=== PATIENT | male | born 1950 | race Caucasian/White ===

== ENCOUNTER 2023-12-13 07:03 | Emergency (ER) | payer MEDICARE ==
[~2023-12-13] VITALS: Ht 175.3 cm; Wt 89.4 kg
[2023-12-13 07:36] VITALS: BP 150/87
[2023-12-13] MEDS ORDERED: HYDR1TAB94 PO (08:21)
[2023-12-13] MEDS ORDERED: Bactrim Ds Tab1 EACH PO (08:21)
== END 2023-12-13 08:27 | disposition home or self-care (01) ==
LOC: ER 07:03
DX: L02.212 Cutaneous abscess of back [any part, except buttock and flank] (principal); S20.411A Abrasion of right back wall of thorax, initial encounter; W20.8XXA Other cause of strike by thrown, projected or falling object, initial encounter; Y93.89 Activity, other specified
CPT/HCPCS: 99282

== ENCOUNTER 2024-05-04 05:38 | Emergency (ER) | payer OTHER ==
[~2024-05-04] VITALS: Ht 175.3 cm; Wt 88.5 kg
[~2024-05-04 05:38] MED LIST: Bactrim Ds Tab1 EACH PO; HYDR1TAB94 PO
[2024-05-04] MEDS ORDERED: Dexamethasone Sod Phos 10 MG/ML 1ML VIAL IM ONE (07:30)
[2024-05-04 08:11] VITALS: BP 140/83
[2024-05-04] MEDS ORDERED: Adenosine 3 MG/ML 2 ML Vial ONE (13:58)
== END 2024-05-04 08:00 ==
LOC: ER 05:38
DX: L30.8 Other specified dermatitis (principal); T50.995A Adverse effect of other drugs, medicaments and biological substances, initial encounter; I10 Essential (primary) hypertension; J45.909 Unspecified asthma, uncomplicated; E03.9 Hypothyroidism, unspecified; N40.0 Benign prostatic hyperplasia without lower urinary tract symptoms; Z79.899 Other long term (current) drug therapy; Z91.09 Other allergy status, other than to drugs and biological substances
CPT/HCPCS: 96372; 99283-25; J0153; J1100

== ENCOUNTER 2024-11-17 02:11 | Emergency (ER) | payer OTHER ==
[~2024-11-17] VITALS: Ht 172.7 cm; Wt 90.7 kg
[2024-11-17] MEDS ORDERED: Dexamethasone Sod Phos 10 MG/ML 1ML VIAL PO ONE (04:25)
[2024-11-17] MEDS ORDERED: Ibuprofen 600 MG Tab PO ONE (04:30)
[2024-11-17] MEDS ORDERED: Lidocaine 2% Viscous Soln 15 ML UDC PO ONE (04:30)
[2024-11-17 05:31] VITALS: BP 115/68
== END 2024-11-17 05:53 | disposition home or self-care (01) ==
LOC: ER 02:11
DX: J02.9 Acute pharyngitis, unspecified (principal); I10 Essential (primary) hypertension; J45.909 Unspecified asthma, uncomplicated; E03.9 Hypothyroidism, unspecified; Z88.8 Allergy status to other drugs, medicaments and biological substances
CPT/HCPCS: 99283; A9270; J1100

== ENCOUNTER 2024-12-15 08:34 | Emergency (ER) | payer OTHER ==
[~2024-12-15] VITALS: Ht 172.7 cm; Wt 88.9 kg
[2024-12-15 09:05] VITALS: BP 142/74
[2024-12-15] MEDS ORDERED: Dexamethasone Sod Phos 10 MG/ML 1ML VIAL PO ONE (10:20)
[2024-12-15] MEDS ORDERED: OSEL75CA PO (10:21)
[2024-12-15] MEDS ORDERED: ALBU90OI INH (10:21)
== END 2024-12-15 10:28 | disposition home or self-care (01) ==
LOC: ER 08:34
DX: J21.9 Acute bronchiolitis, unspecified (principal); J06.9 Acute upper respiratory infection, unspecified; J45.909 Unspecified asthma, uncomplicated; I10 Essential (primary) hypertension; E03.9 Hypothyroidism, unspecified; Z79.2 Long term (current) use of antibiotics; Z88.8 Allergy status to other drugs, medicaments and biological substances
CPT/HCPCS: 71046; 99283-25; J1100

== ENCOUNTER 2025-02-12 16:21 | Inpatient (IN) | payer OTHER ==
[~2025-02-12] VITALS: Ht 172.7 cm; Wt 97.7 kg
[~2025-02-12 16:21] MED LIST changes: +ALBU90OI INH; +OSEL75CA PO
[2025-02-12 17:43] LABS: Hematocrit 23.1 % (37.0-53.0); Hemoglobin 6.4 g/dL (13.5-17.5); Mean Corpuscular HGB 19.9 pg (26.0-34.0); Mean Corpuscular HGB Conc 27.7 g/dL (31.5-36.5); Mean Corpuscular Volume 72 fL (80-100); Mean Platelet Volume 9.5 fL (9.1-12.4); Platelet Count 372 K/mm3 (150-400); RDW Coefficient Variation 17.5 % (11.7-14.2); RDW Standard Deviation 45.3 fL (35.1-46.3); Red Blood Cell Count 3.22 M/mm3 (4.30-5.90)
[2025-02-12 18:17] LABS: BASOPHILS ABSOLUTE MAN 0.06 K/mm3 (0.00-0.23); BASOPHILS PERCENT MAN 1 % (0-2); EOSINOPHILS PERCENT MAN 0 % (0-6); LYMPHOCYTES ABSOLUTE MAN 1.13 K/mm3 (0.84-5.20); LYMPHOCYTES PERCENT MAN 18 % (21-46); MONOCYTES ABSOLUTE MAN 0.69 K/mm3 (0.16-1.47); MONOCYTES PERCENT MAN 11 % (4-13); NEUTROPHILS ABSOLUTE MAN 4.41 K/mm3 (1.96-9.15); SEG NEUTROPHILS PERCENT MAN 70 % (41-73); TOTAL CELLS COUNTED 100
[2025-02-12 18:21] LABS: Albumin, Blood 4.2 g/dL (3.4-5.0); Albumin/Globulin Ratio 1.3 (0.8-1.8); Bilirubin, Total 0.6 mg/dL (0.1-1.0); Bun/Creatinine Ratio 17.5 (12.0-20.0); Calcium, Blood 9.7 mg/dL (8.5-10.1); Creatinine, Blood 1.26 mg/dL (0.60-1.20); Globulin, Blood 3.3 g/dL (2.2-4.0); Potassium, Blood 4.4 mmol/L (3.5-5.5); Total Protein, Blood 7.5 g/dL (6.4-8.2)
[2025-02-12 22:50] LABS: BASOPHILS ABSOLUTE AUTO 0.05 K/mm3 (0.00-0.23); BASOPHILS PERCENT AUTO 1 % (0-2); EOSINOPHILS ABSOLUTE AUTO 0.19 K/mm3 (0.00-0.68); EOSINOPHILS PERCENT AUTO 3 % (0-6); Mean Corpuscular HGB 19.2 pg (26.0-34.0); Mean Corpuscular HGB Conc 27.3 g/dL (31.5-36.5); Mean Corpuscular Volume 71 fL (80-100); Mean Platelet Volume 9.4 fL (9.1-12.4); Platelet Count 349 K/mm3 (150-400); RDW Coefficient Variation 17.6 % (11.7-14.2); Red Blood Cell Count 3.12 M/mm3 (4.30-5.90); White Blood Cell Count 5.93 K/mm3 (4.00-11.30)
[2025-02-12] MEDS ORDERED: NS 1,000 ML IV SCH (22:50)
[2025-02-12 22:51] LABS: IMMATURE GRAN ABSOLUTE AUTO 0.02 K/mm3 (0.00-0.10); IMMATURE GRAN PERCENT AUTO 0 % (0-1); LYMPHOCYTES ABSOLUTE AUTO 1.84 K/mm3 (0.84-5.20); LYMPHOCYTES PERCENT AUTO 31 % (21-46); MONOCYTES ABSOLUTE AUTO 0.58 K/mm3 (0.16-1.47); MONOCYTES PERCENT AUTO 10 % (4-13); NEUTROPHILS ABSOLUTE AUTO 3.25 K/mm3 (1.96-9.15); NEUTROPHILS PERCENT AUTO 55 % (41-73)
[2025-02-12 23:09] LABS: Source, Urine Clean Catch
[2025-02-12 23:12] LABS: Blood, Urine Neg (Neg); Glucose Qualitative, Urine Neg (Neg); Ketones, Urine Neg (Neg); Leukocyte Esterase, Urine Neg (Neg); Nitrite, Urine Neg (Neg); Protein, Urine 1+ (Neg); Urobilinogen, Urine NORM (Normal)
[2025-02-12 23:13] LABS: Appearance, Urine Clear (Clear); Bilirubin, Urine 1+ (Neg); Color, Urine Yellow (P-Yellow)
[2025-02-13] MEDS ORDERED: Ondansetron HCl 2 MG / ML 2ML Vial IV PRN (00:15)
[2025-02-13 01:20] LABS: Percent Saturation 5.3 % (20.0-50.0)
[2025-02-13 06:17] LABS: BASOPHILS ABSOLUTE AUTO 0.06 K/mm3 (0.00-0.23); BASOPHILS PERCENT AUTO 1 % (0-2); EOSINOPHILS ABSOLUTE AUTO 0.18 K/mm3 (0.00-0.68); EOSINOPHILS PERCENT AUTO 3 % (0-6); Hematocrit 27.2 % (37.0-53.0); IMMATURE GRAN ABSOLUTE AUTO 0.02 K/mm3 (0.00-0.10); IMMATURE GRAN PERCENT AUTO 0 % (0-1); LYMPHOCYTES PERCENT AUTO 21 % (21-46); MONOCYTES ABSOLUTE AUTO 0.72 K/mm3 (0.16-1.47); MONOCYTES PERCENT AUTO 10 % (4-13); Mean Corpuscular HGB 21.4 pg (26.0-34.0); Mean Corpuscular HGB Conc 29.4 g/dL (31.5-36.5); Mean Corpuscular Volume 73 fL (80-100); Mean Platelet Volume 9.5 fL (9.1-12.4); NEUTROPHILS ABSOLUTE AUTO 4.52 K/mm3 (1.96-9.15); NEUTROPHILS PERCENT AUTO 65 % (41-73); Platelet Count 371 K/mm3 (150-400); RDW Coefficient Variation 19.3 % (11.7-14.2); RDW Standard Deviation 49.6 fL (35.1-46.3); RETICULOCYTE ABSOLUTE 0.0827 M/mm3 (0.0200-0.1100); RETICULOCYTE COUNT PERCENT 2.21 % (0.50-2.50); Red Blood Cell Count 3.74 M/mm3 (4.30-5.90)
[2025-02-13 06:53] LABS: Albumin, Blood 3.9 g/dL (3.4-5.0); Albumin/Globulin Ratio 1.1 (0.8-1.8); Bilirubin, Total 0.8 mg/dL (0.1-1.0); Bun/Creatinine Ratio 19.3 (12.0-20.0); Calcium, Blood 9.1 mg/dL (8.5-10.1); Creatinine, Blood 0.88 mg/dL (0.60-1.20); Free Thyroxine 0.57 ng/dL (0.70-1.60); Globulin, Blood 3.7 g/dL (2.2-4.0); Potassium, Blood 4.1 mmol/L (3.5-5.5); Thyroid Stimulating Hormone 3.64 uIU/mL (0.360-4.800); Total Protein, Blood 7.6 g/dL (6.4-8.2)
[2025-02-13 11:55] VITALS: BP 153/89
[2025-02-13] MEDS ORDERED: Polyethylene Glycol 3350 17 gm PO ONE ×2 (12:00→22:00)
[2025-02-13] MEDS ORDERED: TAMSULOSIN HCL0.4 M1 PO (12:26)
[2025-02-13] MEDS ORDERED: LOSA50 PO (12:27)
[2025-02-13] MEDS ORDERED: DEPO-TESTO200 MG/18 IM (12:28)
[2025-02-13] MEDS ORDERED: TRAM50 PO (12:28)
[2025-02-13] MEDS ORDERED: Ketoconazole15 GM TOP (12:28)
[2025-02-13] MEDS ORDERED: Acetaminophen650 M1 PO (12:30)
[2025-02-13 12:35] LABS: Hematocrit 27.7 % (37.0-53.0); Hemoglobin 8.3 g/dL (13.5-17.5)
[2025-02-13] MEDS ORDERED: Acetaminophen 325 MG TABLET PO PRN (14:30)
[2025-02-13] MEDS ORDERED: TraMADol HCl 50 MG Tab PO PRN (14:35)
[2025-02-13] MEDS ORDERED: Albuterol HFA200 ACT/6.7 GM INH INH PRN (14:40)
--- NOTE | 2025-02-13 15:27 | NUR ---
PT ADMITTED TO UNIT @ APPROX 1150 FOR SEVERE ANEMIA. PT ABLE TO STAND AND AMBULATE TO BED WITHOUT DIFFICULTY. STEADY ON FEET. PT DENIES PAIN, SOB, CHEST PAIN, OR ANY FORM OF DISTRESS BESIDES CONSTIPATION. MIRALAX GIVEN. PETRE TO COMPLETE UPPER AND LOWER SCOPE TOMORROW. PLAN FOR CLEAR LIQUID DIET TODAY - ICE CHIPS/WATER ONLY 02/14/25 @ 1500. BOWEL PREP ORDERED TO START 02/14/25 @ 0900. TELE IN PLACE RUNNING SR @ 96. PT ORIENTED TO ROOM, CALL SYSTEM, FALL PRECAUTIONS, AND NO SMOKING POLICY. PT CURRENTLY RESTING IN BED WITH CALL LIGHT WITHIN REACH AND BED IN LOWEST POSITION. PT INDEPENDENT IN ROOM.
[2025-02-13] MEDS ORDERED: Pantoprazole Sodium 40 MG Injection IV SCH (16:30)
[2025-02-13 16:59] VITALS: BP 137/74
[2025-02-13 17:09] LABS: Hematocrit 27.7 % (37.0-53.0); Hemoglobin 8.3 g/dL (13.5-17.5)
[2025-02-13 19:55] VITALS: BP 136/71
[2025-02-13] MEDS ORDERED: Oxymetazoline 0.05% Nasal Relief Spray 15mL BTL SCH ×2 (21:25→21:32)
[2025-02-13 22:11] LABS: Hematocrit 26.7 % (37.0-53.0); Hemoglobin 7.9 g/dL (13.5-17.5)
[2025-02-13 23:32] VITALS: BP 141/78
[2025-02-14 04:24] VITALS: BP 144/56
[2025-02-14 05:35] LABS: BASOPHILS ABSOLUTE AUTO 0.05 K/mm3 (0.00-0.23); BASOPHILS PERCENT AUTO 1 % (0-2); EOSINOPHILS ABSOLUTE AUTO 0.18 K/mm3 (0.00-0.68); EOSINOPHILS PERCENT AUTO 3 % (0-6); Hematocrit 27.7 % (37.0-53.0); IMMATURE GRAN ABSOLUTE AUTO 0.03 K/mm3 (0.00-0.10); IMMATURE GRAN PERCENT AUTO 0 % (0-1); LYMPHOCYTES ABSOLUTE AUTO 1.66 K/mm3 (0.84-5.20); LYMPHOCYTES PERCENT AUTO 25 % (21-46); MONOCYTES ABSOLUTE AUTO 0.66 K/mm3 (0.16-1.47); MONOCYTES PERCENT AUTO 10 % (4-13); Mean Corpuscular HGB 21.2 pg (26.0-34.0); Mean Corpuscular HGB Conc 28.9 g/dL (31.5-36.5); Mean Corpuscular Volume 73 fL (80-100); Mean Platelet Volume 9.6 fL (9.1-12.4); NEUTROPHILS ABSOLUTE AUTO 4.15 K/mm3 (1.96-9.15); NEUTROPHILS PERCENT AUTO 62 % (41-73); Platelet Count 338 K/mm3 (150-400); RDW Coefficient Variation 19.1 % (11.7-14.2); RDW Standard Deviation 50.5 fL (35.1-46.3); Red Blood Cell Count 3.78 M/mm3 (4.30-5.90); White Blood Cell Count 6.73 K/mm3 (4.00-11.30)
[2025-02-14 05:56] LABS: Albumin, Blood 3.8 g/dL (3.4-5.0); Albumin/Globulin Ratio 1.1 (0.8-1.8); Bilirubin, Total 1.1 mg/dL (0.1-1.0); Bun/Creatinine Ratio 14.1 (12.0-20.0); Creatinine, Blood 0.92 mg/dL (0.60-1.20); Globulin, Blood 3.5 g/dL (2.2-4.0); Phosphorus, Blood 3.1 mg/dL (2.5-4.9); Potassium, Blood 3.9 mmol/L (3.5-5.5); Total Protein, Blood 7.3 g/dL (6.4-8.2)
[2025-02-14 07:45] VITALS: BP 144/76
[2025-02-14] MEDS ORDERED: Peg/Electrolytes 4,000 ML BTL PT ONE (09:00)
[2025-02-14] MEDS ORDERED: Losartan Potassium 50 MG Tab PO SCH (09:00)
[2025-02-14] MEDS ORDERED: Tamsulosin HCl 0.4 MG Cap PO SCH (09:00)
[2025-02-14] MEDS ORDERED: Lactated Ringer's 1,000 ML IV SCH (14:50)
[2025-02-14 15:15] VITALS: BP 137/80
[2025-02-14 17:30] VITALS: BP 153/75
[2025-02-14] MEDS ORDERED: propofoL 40 ML IV ONE ×2 (17:43→18:19)
[2025-02-14] MEDS ORDERED: Dexmedetomidine HCL 200 MCG / 2 ML ONE (17:49)
[2025-02-14] MEDS ORDERED: Lidocaine HCl 2% 10 ML SDA ONE (17:55)
--- NOTE | 2025-02-14 18:10 | NUR ---
02/14/25 181Sondra Cheatham CONFIRMED AND REVIEWED H&P, MEDCICATIONS, ALLERGIES, MEDICAL HISTORY, RESPIRATORY HISTORY, VITAL SIGNS, 3-LEAD EKG, CONSENTS, AND PHYSICIAN ORDERS. PATIENT CONFIRMS NPO STATUS AND AGREES WITH SCHEDULED PROCEDURE. MONITOR INTACT WITH CONTINUOUS PULSE OXIMETRY, CAPNOGRAPHY, 3-LEAD EKG, INTERMITTENT BP. SUPPLEMENTAL O2 TO BE TITRATED THROUGHOUT PROCEDURE TO MAINTAIN O2 SATURATION ABOVE 90%. PATIENT DETERMINED TO BE ASA APPROPRIATE FOR PROPOFOL SEDATION PRIOR TO START OF PROCEDURE BY DR. RICHARDSON.
[2025-02-14 19:25] VITALS: BP 146/85
--- NOTE | 2025-02-14 19:40 | NUR ---
SHIFT SUMMARY PT A&OX4. PT ADMITTED DUE TO SEVERE ANEMIA. PT REPORTS NO PAIN. PT ON CLEAR LIQUID THIS AM. PT STARTED [place] AND BOWEL PREP, ENDED AT 1500. DR. Norris/Truman TELE. PT REPORTED HAVING RED JELLO AT LUNCH, BM THIS AFTERNOON WAS CLEAR/GRIJALVA/YELLOW. NOTIFIED DAYNURSE. PT INDEPENDENT IN ROOM. VSS. PT HAS HOME ALBUTEROL IN DRAWER. GAVE OK TO HAVE ALBUTEROL ORDERED AT BEDSIDE. PT WILL NOTIFY WHEN HE USES IT. PT LEFT FOR UPPER AND LOWER SCOPE. PASSED ON TO NIGHT NURSE PT NOT BACK FROM OR.
--- NOTE | 2025-02-14 19:58 | NUR ---
1924: RETURN TO ROOM. ASSISTED TO POC IN BED WITH SBA. DINNER PROVIDED. DENIES OTHER NEEDS. CALL LIGHT NEAR.
[2025-02-14] MEDS ORDERED: Oxymetazoline 0.05% Nasal Relief Spray 15mL BTL SCH (21:00)
[2025-02-15 02:39] VITALS: BP 150/73
--- NOTE | 2025-02-15 04:47 | NUR ---
AAOX4, INDEPENDENT WITH CARES. TOLERATED DINNER AFTER UPPER AND LOWER SCOPE.SLEPT WELL WITHOUT ANY ISSUES OR CONCERNS.
[2025-02-15 05:27] LABS: BASOPHILS ABSOLUTE AUTO 0.06 K/mm3 (0.00-0.23); BASOPHILS PERCENT AUTO 1 % (0-2); EOSINOPHILS ABSOLUTE AUTO 0.18 K/mm3 (0.00-0.68); EOSINOPHILS PERCENT AUTO 2 % (0-6); Hematocrit 28.1 % (37.0-53.0); Hemoglobin 8.1 g/dL (13.5-17.5); IMMATURE GRAN ABSOLUTE AUTO 0.03 K/mm3 (0.00-0.10); IMMATURE GRAN PERCENT AUTO 0 % (0-1); LYMPHOCYTES ABSOLUTE AUTO 1.77 K/mm3 (0.84-5.20); LYMPHOCYTES PERCENT AUTO 20 % (21-46); MONOCYTES ABSOLUTE AUTO 0.89 K/mm3 (0.16-1.47); MONOCYTES PERCENT AUTO 10 % (4-13); Mean Corpuscular HGB 21.6 pg (26.0-34.0); Mean Corpuscular HGB Conc 28.8 g/dL (31.5-36.5); Mean Corpuscular Volume 75 fL (80-100); Mean Platelet Volume 10.2 fL (9.1-12.4); NEUTROPHILS ABSOLUTE AUTO 6.02 K/mm3 (1.96-9.15); NEUTROPHILS PERCENT AUTO 67 % (41-73); Platelet Count 352 K/mm3 (150-400); RDW Coefficient Variation 19.8 % (11.7-14.2); RDW Standard Deviation 52.5 fL (35.1-46.3); Red Blood Cell Count 3.75 M/mm3 (4.30-5.90); White Blood Cell Count 8.95 K/mm3 (4.00-11.30)
[2025-02-15 05:51] LABS: Albumin, Blood 3.8 g/dL (3.4-5.0); Anion Gap 8 mmol/L (3-11); Blood Urea Nitrogen 16 mg/dL (8-24); Bun/Creatinine Ratio 15.8 (12.0-20.0); CO2, Blood 26 mmol/L (21-32); Calcium, Blood 9.1 mg/dL (8.5-10.1); Chloride, Blood 107 mmol/L (98-108); Creatinine, Blood 1.01 mg/dL (0.60-1.20); Glomerular Filtration Rate 78 (60-); Glucose, Blood 101 mg/dL (70-99); Potassium, Blood 3.8 mmol/L (3.5-5.5); Sodium, Blood 137 mmol/L (136-145)
[2025-02-15 07:20] VITALS: BP 151/89
[2025-02-15] MEDS ORDERED: PANT40 PO (09:29)
--- NOTE | 2025-02-15 09:34 | NUR ---
NOTE PT A&OX4. PT ADMITTED DUE TO SEVERE ANEMIA. PT INDEPENDENT IN ROOM. PT TOLERATES HEART HEALTHY DIET. PT MEDS FAXED. PT REPORTS NO PAIN. PT LEFT WITH HOME INHALER AND PERSONAL BELONGINGS. PT REPORTS NO PAIN. IV D/C. MEDS FAXED TO PHARMACY. CHARGE NURSE CAMERON WENT OVER INSTRUCTIONS AND MEDS. PT REPORTED, NOT WANTING MEDS DUE TO "WILL TAKE AT HOME." PT ESCORTED OUT BY [employer] VIA WHEELCHAIR.
== END 2025-02-15 09:40 | disposition home or self-care (01) | DRG 811 ==
LOC: ER 16:21 → ERHOLD 16:22 → MEDS 16:22
PROVIDERS: Emergency Medicine; Family Medicine; Internal Medicine Gastroenterology; Student in an Organized Health Care Education/Training Program; ADMIT Internal Medicine
PROC: 30233N1 Transfusion of Nonautologous Red Blood Cells into Peripheral Vein, Percutaneous Approach (ICD-10-PCS; principal; 2025-02-12)
PROC: 0W3P8ZZ Control Bleeding in Gastrointestinal Tract, Via Natural or Artificial Opening Endoscopic (ICD-10-PCS; 2025-02-14 17:00)
PROC: 0W3P8ZZ Control Bleeding in Gastrointestinal Tract, Via Natural or Artificial Opening Endoscopic (ICD-10-PCS; 2025-02-14 17:00)
DX: D62 Acute posthemorrhagic anemia (principal); K31.811 Angiodysplasia of stomach and duodenum with bleeding; K55.21 Angiodysplasia of colon with hemorrhage; I10 Essential (primary) hypertension; E03.9 Hypothyroidism, unspecified; G89.29 Other chronic pain; G47.33 Obstructive sleep apnea (adult) (pediatric); N40.0 Benign prostatic hyperplasia without lower urinary tract symptoms; J45.909 Unspecified asthma, uncomplicated; M19.90 Unspecified osteoarthritis, unspecified site; K64.4 Residual hemorrhoidal skin tags; Z86.19 Personal history of other infectious and parasitic diseases; Z88.8 Allergy status to other drugs, medicaments and biological substances; Z79.1 Long term (current) use of non-steroidal anti-inflammatories (NSAID); Z87.891 Personal history of nicotine dependence
CPT/HCPCS: 36415; 36430; 51798; 74177; 80053; 80069; 82728; 83540; 83550; 83735; 83880; 84100; 84439; 84443; 85014; 85018; 85025; 85045; 86850; 86900; 86901; 86920; 94660; 94762; 99285-25; A9270; G0378; J2003; J2470; J2704; J7030; P9016; Q9967

== ENCOUNTER → 2025-03-04 | Outpatient (CLI) | payer OTHER ==
[~2025-03-04] MED LIST changes: +Acetaminophen650 M1 PO; +DEPO-TESTO200 MG/18 IM; +FEROSUL325 M1 PO; +Ketoconazole15 GM TOP; +LOSA50 PO; +PANT40 PO; +TAMSULOSIN HCL0.4 M1 PO; +TRAM50 PO
[2025-03-04 18:21] LABS: BASOPHILS ABSOLUTE AUTO 0.03 K/mm3 (0.00-0.23); BASOPHILS PERCENT AUTO 1 % (0-2); EOSINOPHILS ABSOLUTE AUTO 0.06 K/mm3 (0.00-0.68); EOSINOPHILS PERCENT AUTO 1 % (0-6); Hematocrit 24.5 % (37.0-53.0); IMMATURE GRAN ABSOLUTE AUTO 0.03 K/mm3 (0.00-0.10); IMMATURE GRAN PERCENT AUTO 1 % (0-1); LYMPHOCYTES ABSOLUTE AUTO 1.89 K/mm3 (0.84-5.20); LYMPHOCYTES PERCENT AUTO 32 % (21-46); MONOCYTES ABSOLUTE AUTO 0.57 K/mm3 (0.16-1.47); MONOCYTES PERCENT AUTO 10 % (4-13); Mean Corpuscular HGB 21.3 pg (26.0-34.0); Mean Corpuscular HGB Conc 28.6 g/dL (31.5-36.5); Mean Corpuscular Volume 75 fL (80-100); Mean Platelet Volume 9.5 fL (9.1-12.4); NEUTROPHILS ABSOLUTE AUTO 3.41 K/mm3 (1.96-9.15); NEUTROPHILS PERCENT AUTO 57 % (41-73); Platelet Count 346 K/mm3 (150-400); RDW Coefficient Variation 21.7 % (11.7-14.2); RDW Standard Deviation 57.4 fL (35.1-46.3); Red Blood Cell Count 3.29 M/mm3 (4.30-5.90); White Blood Cell Count 5.99 K/mm3 (4.00-11.30)
[2025-03-04 18:40] LABS: Albumin, Blood 3.9 g/dL (3.4-5.0); Albumin/Globulin Ratio 1.1 (0.8-1.8); Bilirubin, Total 0.6 mg/dL (0.1-1.0); Bun/Creatinine Ratio 10.8 (12.0-20.0); Calcium, Blood 9.1 mg/dL (8.5-10.1); Creatinine, Blood 1.2 mg/dL (0.60-1.20); Globulin, Blood 3.7 g/dL (2.2-4.0); Potassium, Blood 3.8 mmol/L (3.5-5.5); Thyroid Stimulating Hormone 3.208 uIU/mL (0.360-4.800); Total Protein, Blood 7.6 g/dL (6.4-8.2)
== END | disposition home or self-care (01) ==
LOC: LAB 18:17 → LAB SHORT 18:17
PROVIDERS: Physician Assistant
DX: R10.9 Unspecified abdominal pain (principal); R53.83 Other fatigue
CPT/HCPCS: 80053; 83690; 84443; 85025

== ENCOUNTER 2025-03-08 10:13 | Emergency (ER) | payer OTHER ==
[~2025-03-08] VITALS: Ht 175.3 cm; Wt 81.7 kg
[~2025-03-08 10:13] MED LIST changes: -FEROSUL325 M1 PO
[2025-03-08 11:00] LABS: BASOPHILS ABSOLUTE AUTO 0.03 K/mm3 (0.00-0.23); BASOPHILS PERCENT AUTO 0 % (0-2); EOSINOPHILS ABSOLUTE AUTO 0.03 K/mm3 (0.00-0.68); EOSINOPHILS PERCENT AUTO 0 % (0-6); Hematocrit 25.4 % (37.0-53.0); Hemoglobin 7.2 g/dL (13.5-17.5); IMMATURE GRAN ABSOLUTE AUTO 0.02 K/mm3 (0.00-0.10); IMMATURE GRAN PERCENT AUTO 0 % (0-1); LYMPHOCYTES ABSOLUTE AUTO 1.37 K/mm3 (0.84-5.20); LYMPHOCYTES PERCENT AUTO 19 % (21-46); MONOCYTES ABSOLUTE AUTO 0.53 K/mm3 (0.16-1.47); MONOCYTES PERCENT AUTO 7 % (4-13); Mean Corpuscular HGB 21.3 pg (26.0-34.0); Mean Corpuscular HGB Conc 28.3 g/dL (31.5-36.5); Mean Corpuscular Volume 75 fL (80-100); Mean Platelet Volume 9.9 fL (9.1-12.4); NEUTROPHILS ABSOLUTE AUTO 5.28 K/mm3 (1.96-9.15); NEUTROPHILS PERCENT AUTO 73 % (41-73); Platelet Count 387 K/mm3 (150-400); RDW Coefficient Variation 20.9 % (11.7-14.2); RDW Standard Deviation 56.2 fL (35.1-46.3); Red Blood Cell Count 3.38 M/mm3 (4.30-5.90); White Blood Cell Count 7.26 K/mm3 (4.00-11.30)
[2025-03-08 11:19] LABS: Albumin, Blood 3.9 g/dL (3.4-5.0); Albumin/Globulin Ratio 1.1 (0.8-1.8); Bilirubin, Total 0.8 mg/dL (0.1-1.0); Bun/Creatinine Ratio 17.9 (12.0-20.0); Calcium, Blood 9.2 mg/dL (8.5-10.1); Creatinine, Blood 1.06 mg/dL (0.60-1.20); Globulin, Blood 3.7 g/dL (2.2-4.0); Potassium, Blood 3.7 mmol/L (3.5-5.5); Total Protein, Blood 7.6 g/dL (6.4-8.2)
[2025-03-08] MEDS ORDERED: Sod Ferric Gluc Complx/Sucrose 125 MG in NS 100 ML IV ONE (12:10)
[2025-03-08] MEDS ORDERED: FEROSUL325 M1 PO (13:47)
[2025-03-08 14:00] VITALS: BP 136/70
== END 2025-03-08 14:06 | disposition home or self-care (01) ==
LOC: ER 10:13
PROVIDERS: Emergency Medicine
DX: D64.9 Anemia, unspecified (principal); J45.909 Unspecified asthma, uncomplicated; I10 Essential (primary) hypertension; E03.9 Hypothyroidism, unspecified; Z79.899 Other long term (current) drug therapy; Z88.8 Allergy status to other drugs, medicaments and biological substances
CPT/HCPCS: 80053; 85025; 96365; 99284-25; J2916